=== PATIENT | male | born 1945 | race Caucasian/White ===

== ENCOUNTER 2022-06-14 13:27 | Emergency (ER) | payer MEDICARE, OTHER ==
[~2022-06-14] VITALS: Ht 172.7 cm; Wt 83.9 kg
--- NOTE | 2022-06-14 13:30 | ED General ---
General Chief Complaint: Dizziness/Syncope Stated Complaint: DIZZINESS; GEN WEAKNESS History of Present Illness Date Seen by Provider: Jun 14, 2022 Time Seen by Provider: 13:30 Initial Comments 76-year-old male presents with some generalized weakness and feeling of dizziness. Patient reports that he got symptoms when he was climbing up into a tree stand. He states that he is up here from [place]. That about a week 10 days ago he was diagnosed with "flu" that he was doing better. That however today his symptoms were a lot worse. He denies any current cough. He did have a cough with his illness. He denies chest pain, nausea, vomiting, shortness of breath or any other systemic complaints at this time Allergies and Home Medications Allergies Coded Allergies: No Known Drug Allergies (Unverified , 06/14/22) Patient Home Medication List Home Medication List Reviewed: Yes Review of Systems Review of Systems Constitutional: No chills; dizziness, weakness EENTM: no symptoms reported Respiratory: No cough, No short of breath Cardiovascular: No chest pain, No palpitations Gastrointestinal: No abdominal pain, No nausea, No vomiting Genitourinary: no symptoms reported Musculoskeletal: no symptoms reported Skin: no symptoms reported Psychiatric/Neurological: No Symptoms Reported Physical Exam Vital Signs Vital Signs - First Documented 06/14/22 13:27 Temp 36.2 Pulse 90 Resp 16 B/P (MAP) 191/89 (123) Pulse Ox 100 O2 Delivery Room Air Capillary Refill : Height, Weight, BMI Height: '" Weight: lbs. oz. 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 Norm as Tested Skin: Normal Color, Warm/Dry Progress/Results/Core Measures Suspected Sepsis SIRS Temperature: Pulse: Respiratory Rate: Laboratory Tests 06/14/22 14:20: White Blood Count 8.4 Blood Pressure / Mean: Laboratory Tests 06/14/22 14:20: Creatinine 0.95, Platelet Count 198, Total Bilirubin 0.5 Results/Orders Lab Results Laboratory Tests Test 06/14/22 13:37 06/14/22 14:20 Range/Units Urine Color YELLOW Urine Clarity CLEAR Urine pH 6.5 5-9 Urine Specific [place] 1.020 1.016-1.022 Urine Protein TRACE H NEGATIVE Urine Glucose (UA) 1+ H NEGATIVE Urine Ketones NEGATIVE NEGATIVE Urine Nitrite NEGATIVE NEGATIVE Urine Bilirubin NEGATIVE NEGATIVE Urine Urobilinogen 0.2 < = 1.0 MG/DL Urine Leukocyte Esterase NEGATIVE NEGATIVE Urine RBC (Auto) TRACE-I H NEGATIVE Urine RBC 10-25 H /HPF Urine WBC 2-5 /HPF Urine Squamous Epithelial Cells NONE /HPF Urine Crystals PRESENT H /LPF Urine Triple Phosphate Crystals LARGE H /LPF Urine Bacteria FEW H /HPF Urine Casts NONE /LPF Urine Mucus MODERATE H /LPF Urine Culture Indicated YES White Blood Count 8.4 4.3-11.0 10^3/uL Red Blood Count 3.97 L 4.30-5.52 10^6/uL Hemoglobin 11.8 L 13.3-17.7 g/dL Hematocrit 34 L 40-54 % Mean Corpuscular Volume 85 80-99 fL Mean Corpuscular Hemoglobin 30 25-34 pg Mean Corpuscular Hemoglobin Concent 35 32-36 g/dL Red Cell Distribution Width 13.3 10.0-14.5 % Platelet Count 198 130-400 10^3/uL Mean Platelet Volume 11.3 9.0-12.2 fL Immature Granulocyte % (Auto) 1 % Neutrophils (%) (Auto) 61 42-75 % Lymphocytes (%) (Auto) 29 12-44 % Monocytes (%) (Auto) 7 0-12 % Eosinophils (%) (Auto) 1 0-10 % Basophils (%) (Auto) 1 0-10 % Neutrophils # (Auto) 5.1 1.8-7.8 10^3/uL Lymphocytes # (Auto) 2.5 1.0-4.0 10^3/uL Monocytes # (Auto) 0.6 0.0-1.0 10^3/uL Eosinophils # (Auto) 0.1 0.0-0.3 10^3/uL Basophils # (Auto) 0.0 0.0-0.1 10^3/uL Immature Granulocyte # (Auto) 0.1 0.0-0.1 10^3/uL Sodium Level 140 135-145 MMOL/L Potassium Level 3.6 3.6-5.0 MMOL/L Chloride Level 105 98-107 MMOL/L Carbon Dioxide Level 23 21-32 MMOL/L Anion Gap 12 5-14 MMOL/L Blood Urea Nitrogen 29 H 7-18 MG/DL Creatinine 0.95 0.60-1.30 MG/DL Estimat Glomerular Filtration Rate 83 BUN/Creatinine Ratio 31 Glucose Level 204 H 70-105 MG/DL Calcium Level 8.8 8.5-10.1 MG/DL Corrected Calcium 9.0 8.5-10.1 MG/DL Magnesium Level 1.8 1.6-2.4 MG/DL Total Bilirubin 0.5 0.1-1.0 MG/DL Aspartate Amino Transf (AST/SGOT) 18 5-34 U/L Alanine Aminotransferase (ALT/SGPT) 16 0-55 U/L Alkaline Phosphatase 80 40-136 U/L Troponin I < 0.30 <0.30 NG/ML C-Reactive Protein 0.68 H <0.50 MG/DL Total Protein 6.0 L 6.4-8.2 GM/DL Albumin 3.7 3.2-4.5 GM/DL My Orders Orders - BILLINGSLEY,BRADFORD L DO Cbc With Automated Diff (06/14/22 13:41) Magnesium (06/14/22 13:41) Ua Culture If Indicated (06/14/22 13:41) Crp Fs (06/14/22 13:41) Troponin I Fs (06/14/22 13:41) Lactated Ringers (Lr 1000 Ml Iv Solution (06/14/22 13:41) Accucheck Stat ONCE (06/14/22 13:41) Ekg Tracing (06/14/22 13:41) Monitor-Rhythm Ecg Trace Only (06/14/22 13:41) Orthostatic Vital Signs (Adult (06/14/22 13:41) Chest Pa/Lat (2 View) (06/14/22 13:41) Ekg Tracing (06/14/22 13:48) Comprehensive Metabolic Panel (06/14/22 13:48) Urine Culture (06/14/22 13:37) Meclizine Tablet (Antivert Tablet) (06/14/22 15:15) Vital Signs/I&O 06/14/22 06/14/22 13:27 14:40 Temp 36.2 Pulse 90 75 82 82 Resp 16 B/P (MAP) 191/89 (123) 158/77 (104) 146/91 (109) 159/63 (95) Pulse Ox 100 O2 Delivery Room Air Capillary Refill : Progress Note : Progress Note Patient's symptoms likely a combination of a postviral syndrome with some mild dehydration and questionable early UTI. Discussed lab findings including the triple phosphate crystals that were concerning for a kidney stone from bacteria that needs to be further evaluated. Patient reports that he has been having a lot more frequent urination. Treating with Macrobid since he is having some dizziness since symptoms. Recommended rehydration and rest. Patient does report that he has a follow-up appointment with his urologist back in [place] in the next week or 2. Patient stable and be discharged home ECG Initial ECG Impression Date: Jun 14, 2022 Initial ECG Impression Time: 13:41 Initial ECG Rate: 82 Initial ECG Rhythm: Normal Sinus Initial ECG Impression: Normal Initial ECG Comparisson: No Previous ECG Available Comment No acute ST elevation or changes noted Departure Impression Primary Impression: Post viral syndrome Additional Impressions: Mild dehydration Urinary tract infection Qualified Codes: N39.0 - Urinary tract infection, site not specified; R31.9 - Hematuria, unspecified Disposition: 01 HOME, SELF-CARE Condition: Stable Departure-Patient Inst. Referrals: NO,LOCAL PHYSICIAN (PCP/Family) Primary Care Physician Patient Instructions: Urinary Tract Infection, Adult (DC), VIRAL RESP ILLNESS- CHILD Add. Discharge Instructions: Drink plenty of fluids, follow-up with your urologist when she get back home. Return to the ER if you have any other concern or worsening of your symptoms All discharge instructions reviewed with patient and/or family. Voiced understanding. Scripts Nitrofurantoin Monohyd/M-Cryst (Macrobid 100 mg Capsule) 100 Mg Capsule 1 TAB PO BID for 7 Days, #14 CAP Prov: BRADFORD BILLINGSLEY DO 06/14/22 BRADFORD BILLINGSLEY DO Jun 14, 2022 13:30
[2022-06-14] MEDS ORDERED: LACTATED RINGERS 1,000 ML IV STA (13:41)
[2022-06-14 14:22] LABS: BASOPHILS % (AUTO) 1 % (0-10); EOSINOPHILS # (AUTO) 0.1 10^3/uL (0.0-0.3); EOSINOPHILS % (AUTO) 1 % (0-10); HEMATOCRIT 34 % (40-54); HEMOGLOBIN 11.8 g/dL (13.3-17.7); LYMPHOCYTES # (AUTO) 2.5 10^3/uL (1.0-4.0); LYMPHOCYTES % (AUTO) 29 % (12-44); MEAN CORPUSCULAR HEMOGLOBIN 30 pg (25-34); MEAN CORPUSCULAR HGB CONC 35 g/dL (32-36); MEAN CORPUSCULAR VOLUME 85 fL (80-99); MEAN PLATELET VOLUME 11.3 fL (9.0-12.2); MONOCYTES # (AUTO) 0.6 10^3/uL (0.0-1.0); MONOCYTES % (AUTO) 7 % (0-12); NEUTROPHILS # (AUTO) 5.1 10^3/uL (1.8-7.8); NEUTROPHILS % (AUTO) 61 % (42-75); PLATELET COUNT 198 10^3/uL (130-400); WHITE BLOOD COUNT 8.4 10^3/uL (4.3-11.0)
[2022-06-14 14:23] LABS: BILIRUBIN,URINE NEGATIVE (NEGATIVE); CLARITY,URINE CLEAR; COLOR,URINE YELLOW; GLUCOSE, URINE (UA) 1+ (NEGATIVE); KETONES,URINE NEGATIVE (NEGATIVE); LEUKOCYTE ESTERASE ,URINE NEGATIVE (NEGATIVE); NITRITE,URINE NEGATIVE (NEGATIVE); PH,URINE 6.5 (5-9); PROTEIN,URINE TRACE (NEGATIVE)
[2022-06-14 14:28] LABS: BACTERIA,URINE FEW /HPF
[2022-06-14 14:29] LABS: TRIPLE PHOSPHATE CRYSTAL,UR LARGE /LPF
--- NOTE | 2022-06-14 14:38 | Diagnostic Imaging Report ---
EXAMINATION: Chest 2 view. HISTORY: Weakness. COMPARISON: None available. FINDINGS: Heart size and pulmonary vasculature are normal. The lungs are clear without consolidation, pleural effusion, or pneumothorax. The osseous structures are intact. IMPRESSION: No acute radiographic abnormality in the chest. Dictated by: Dictated on workstation # [id number]
[2022-06-14 14:40] VITALS: BP_SYST 146; BP_SYST 158; BP_SYST 159; BP_DIAS 63; BP_DIAS 77; BP_DIAS 91
[2022-06-14 14:44] LABS: MAGNESIUM 1.8 MG/DL (1.6-2.4)
[2022-06-14 14:45] LABS: ALBUMIN 3.7 GM/DL (3.2-4.5); BILIRUBIN,TOTAL 0.5 MG/DL (0.1-1.0); CALCIUM 8.8 MG/DL (8.5-10.1); CREATININE SERUM 0.95 MG/DL (0.60-1.30); POTASSIUM 3.6 MMOL/L (3.6-5.0)
[2022-06-14] MEDS ORDERED: NITR-65 PO (15:11)
[2022-06-14] MEDS ORDERED: MECLIZINE 25 MG (ANTIVERT) TAB PO ONE (15:15)
[2022-06-14 15:24] VITALS: BP 174/82
== END 2022-06-14 15:26 | disposition home or self-care (01) ==
LOC: ER FS 13:28
DX: G93.31 Postviral fatigue syndrome (principal); N39.0 Urinary tract infection, site not specified; E86.0 Dehydration
CPT/HCPCS: 36415; 71046; 80053; 81000; 83735; 84484; 85025; 86141; 87088; 93005; 93041